=== PATIENT | male | born 1945 | race Caucasian/White ===

== ENCOUNTER 2018-07-09 09:25 | Day surgery (SDC) | payer OTHER ==
[2018-07-09] MEDS ORDERED: NALOXONE HCL 0.4 MG/ML INJ IVP PRN (09:50)
[2018-07-09] MEDS ORDERED: FLUMAZENIL 0.5 MG/5 ML MDV IVP PRN (09:50)
[2018-07-09] MEDS ORDERED: MIDAZOLAM 2 MG/2 ML VIAL IVP PRN (09:50)
[2018-07-09] MEDS ORDERED: fentaNYL 100 MCG/2 ML INJ IVP PRN (09:50)
[2018-07-09] MEDS ORDERED: NS 1,000 ML IV SCH (10:00)
[2018-07-09 10:54] LABS: PLATELET COUNT 226 10^3/uL (150-400)
[2018-07-09 11:02] LABS: INR 0.97 (0.83-1.16); PROTIME(PATIENT) 13.1 SEC (12.0-15.0)
[2018-07-09] MEDS ORDERED: FLUMAZENIL 0.5 MG/5 ML MDV IVP ONE (11:12)
[2018-07-09] MEDS ORDERED: NALOXONE HCL 0.4 MG/ML INJ ONE (11:12)
[2018-07-09] MEDS ORDERED: fentaNYL 100 MCG/2 ML INJ ONE ×2 (11:12)
[2018-07-09] MEDS ORDERED: MIDAZOLAM 2 MG/2 ML VIAL ONE (11:13)
[2018-07-09] MEDS ORDERED: LIDOCAINE 1% 300 MG/30 ML SDV ONE (11:26)
[2018-07-09] MEDS ORDERED: ACETAMINOPHEN 325 MG TAB PO PRN (12:07)
[2018-07-09] MEDS ORDERED: OXYCODONE/APAP 5/325 TAB PO PRN (12:07)
[2018-07-09] MEDS ORDERED: ONDANSETRON 4 MG/2 ML VIAL IVP PRN (12:07)
--- NOTE | 2018-07-09 12:08 | PDPROPOC ---
Sedation Plan of Care Sedation Plan of Care: vital signs stable, mental status noted, patient educated of risks, benefits, alternatives, patient can tolerate sedation ASA Classification: ASA 2 Planned drugs: fentanyl, midazolam Mallampati Score: Class 2 Mallampati Reference Image: Patient passed 3-3-2 rule?: Yes
--- NOTE | 2018-07-09 12:09 | PDRADPRE ---
Radiology History & Physical Indication for procedure: cancer (Left renal mass c/w RCC: CT guided biopsy) Home medications: Bp Med 08/23/15 [Last Taken Unknown] Bph Med 08/23/15 [Last Taken Unknown] Allergies/Adverse Reactions: No Known Allergies Allergy (Verified 08/23/15 15:05) Mental status: A&Ox3 Heart exam: regular rate and rhythm Lungs exam: clear to auscultation Mallampati Score: Class 2
--- NOTE | 2018-07-09 12:09 | PDRADPN ---
Radiology Procedure Note Date of Procedure: 07/09/18 Radiologist: Patrice Phillips Anesthesia: IV Sedation Pre-op Diagnosis: Left renal mass Post-op Diagnosis: Left renal mass Indication: Left renal mass Procedure: CT guided biopsy Finding(s): 18 ga core specimens sent to surg path Inf/Abcess present in the surg proc area at time of surgery?: No EBL: Minimal
[2018-07-09 18:23] VITALS: BP 122/87
== END 2018-07-09 18:00 | disposition home or self-care (01) ==
LOC: FIMAGING 09:25
PROVIDERS: ATTEND Specialist
PROC: 0TB13ZX Excision of Left Kidney, Percutaneous Approach, Diagnostic (ICD-10-PCS; principal; 2018-07-09 12:18)
DX: C64.2 Malignant neoplasm of left kidney, except renal pelvis (principal)
CPT/HCPCS: J2250; J2310; J3010

== ENCOUNTER 2018-09-13 09:29 | Day surgery (SDC) | payer OTHER ==
[2018-09-13] MEDS ORDERED: ROCURONIUM 100 MG/10 ML VIAL ONE (09:54)
[2018-09-13] MEDS ORDERED: SUCCINYLCHOLINE CHLORIDE 200 MG/10 ML VIAL ONE (09:54)
[2018-09-13] MEDS ORDERED: PROPOFOL/EMULSION 500 MG/50 ML BOTTLE IV ONE (09:59)
[2018-09-13] MEDS ORDERED: PROPOFOL 200 MG/20 ML VIAL ONE (09:59)
[2018-09-13] MEDS ORDERED: levOFLOXACIN 500 MG/DEXTROSE 100 ML IV ONE (10:30)
[2018-09-13 10:56] LABS: PLATELET COUNT 257 10^3/uL (150-400)
[2018-09-13 11:09] LABS: INR 1.05 (0.83-1.16); PROTIME(PATIENT) 13.3 SEC (12.0-15.0)
[2018-09-13] MEDS ORDERED: LIDOCAINE 1% 300 MG/30 ML SDV ONE (11:13)
--- NOTE | 2018-09-13 11:13 | PDANEPAE ---
ANE History of Present Illness left renal mass ANE Past Medical History - Cardiovascular History Hx Hypertension: Yes Hx Arrhythmias: No Hx Chest Pain: No Hx Coronary Artery / Peripheral Vascular Disease: Yes Hx CHF / Valvular Disease: No Hx Palpitations: No Cardiovascular History Comment: CAD s/p stents - Pulmonary History Hx COPD: No Hx Asthma/Reactive Airway Disease: No Hx Recent Upper Respiratory Infection: No Hx Oxygen in Use at Home: No Hx Sleep Apnea: No - Neurologic History Hx Cerebrovascular Accident: No Hx Seizures: No Hx Dementia: No - Endocrine History Hx Diabetes: No Hypothyroid: No Hyperthyroid: No Obesity: moderate - Renal History Hx Renal Disorders: Yes Renal History Comment: left renal cell cancer - Liver History Hx Hepatic Disorders: No - Neurological & Psychiatric Hx Hx Neurological and Psychiatric Disorders: No - Cancer History Hx Cancer: No - Congenital Disorder History Hx Congenital Disorders: No - GI History GERD: no Hx Gastrointestinal Disorders: No - Chronic Pain History Chronic Pain: No ANE Review of Systems Review of systems is: negative Review of Systems: - Exercise capacity Exercise capacity: >=4 METS METS (RN): 4 METS ANE Patient History - Allergies Allergies/Adverse Reactions: No Known Allergies Allergy (Verified 09/13/18 10:51) - Home Medications Home medications: home medication list seen and reviewed Home Medications: Bp Med 08/23/15 [Last Taken Unknown] Bph Med 08/23/15 [Last Taken Unknown] Aspirin 81mg (*) 81 mg PO DAILY 09/10/18 [Last Taken 09/09/18 08:00] Atorvastatin Calcium 40 mg PO DAILY 09/13/18 [Last Taken 09/13/18 0800] Carvedilol 3.12 mg PO BID 09/13/18 [Last Taken 09/13/18 0800] Entresto 24 mg/26 mg (RX) 24 mg PO BID 09/13/18 [Last Taken 09/13/18 0800] Tamsulosin HCl 0.4 mg PO DAILY 09/13/18 [Last Taken 09/13/18 08:00] - NPO status NPO Status: no food or drink >8 hours - Anes Hx Anes Hx: no prior problems - Smoking Hx Smoking Status: Never smoked ANE Labs/Vital Signs - Labs Result Diagrams: 09/13/18 10:32 09/13/18 10:32 - Vital Signs Vital Signs: reviewed preoperatively; see RN documention for details Height: 180.34 cm Weight: 102.058 kg ANE Physical Exam - Airway Neck exam: FROM Mallampati Score: Class 2 Mouth exam: dentures - Pulmonary Pulmonary: no respiratory distress - Cardiovascular Cardiovascular: regular rate and rhythym - ASA Status ASA Status: III ANE Anesthesia Plan Anesthesia Plan: general endotracheal anesthesia
[2018-09-13] MEDS ORDERED: fentaNYL 100 MCG/2 ML INJ ONE (11:29)
[2018-09-13] MEDS ORDERED: SODIUM CL 0.9% 20 ML VIAL ONE (12:00)
[2018-09-13] MEDS ORDERED: ONDANSETRON 4 MG/2 ML VIAL ONE (12:00)
[2018-09-13] MEDS ORDERED: GLYCOPYRROLATE 0.2 MG/1 ML VIAL ONE (12:00)
[2018-09-13] MEDS ORDERED: DEXAMETHASONE 10 MG/ML VIAL ONE (12:00)
[2018-09-13] MEDS ORDERED: PHENYLEPHRINE 10 MG/ML SDV ONE (12:00)
[2018-09-13] MEDS ORDERED: LIDOCAINE 2% JELLY 5 ML TUBE ONE (12:00)
--- NOTE | 2018-09-13 12:03 | PDRADPRE ---
Radiology History & Physical Indication for procedure: cancer (Left RCC, plan for MWA with CT guidance) Home medications: Bp Med 08/23/15 [Last Taken Unknown] Bph Med 08/23/15 [Last Taken Unknown] Aspirin 81mg (*) 81 mg PO DAILY 09/10/18 [Last Taken 09/09/18 08:00] Atorvastatin Calcium 40 mg PO DAILY 09/13/18 [Last Taken 09/13/18 0800] Carvedilol 3.12 mg PO BID 09/13/18 [Last Taken 09/13/18 0800] Entresto 24 mg/26 mg (RX) 24 mg PO BID 09/13/18 [Last Taken 09/13/18 0800] Tamsulosin HCl 0.4 mg PO DAILY 09/13/18 [Last Taken 09/13/18 08:00] Allergies/Adverse Reactions: No Known Allergies Allergy (Verified 09/13/18 10:51) Mental status: A&Ox3 Heart exam: regular rate and rhythm Lungs exam: clear to auscultation Mallampati Score: Class 3
[2018-09-13] MEDS ORDERED: IOPAMIDOL (ISOVUE-300) 100 ML BTL ONE (12:34)
[2018-09-13] MEDS ORDERED: OXYCODONE/APAP 5/325 TAB PO PRN (13:35)
[2018-09-13] MEDS ORDERED: ONDANSETRON 4 MG/2 ML VIAL IVP PRN (13:35)
[2018-09-13] MEDS ORDERED: ACETAMINOPHEN 325 MG TAB PO PRN (13:35)
--- NOTE | 2018-09-13 13:40 | PDRADPN ---
Radiology Procedure Note Date of Procedure: 09/13/18 Radiologist: Patrice Phillips Anesthesia: IV Sedation Pre-op Diagnosis: RCC Post-op Diagnosis: RCC Indication: RCC Procedure: MWA RCC Finding(s): Left RCC ablated without complication. Subcapsular hematoma from prior biopsy was seen which partially obsucred the renal mass. Inf/Abcess present in the surg proc area at time of surgery?: No
[2018-09-13] MEDS ORDERED: SUGAMMADEX SODIUM 200 MG/2 ML VIAL IVP ONE (13:45)
--- NOTE | 2018-09-13 14:02 | POSTANESTH ---
Post Anesthetic Evaluation Cardiovascular Status: Normal, Stable Respiratory Status: Normal, Stable Level of Consciousness/Mental Status: Can Participate in Eval Pain Control: Adequate, Prn Tx Ordered Nausea/Vomiting Control: Adequate, Prn Tx Ordered Complications Possibly Related to Anesthesia: None Noted
[2018-09-13 18:17] VITALS: BP 137/75
== END 2018-09-13 18:00 | disposition home or self-care (01) ==
LOC: FIMAGING 09:29
PROVIDERS: ATTEND Radiology Vascular & Interventional Radiology
PROC: 0T513ZZ Destruction of Left Kidney, Percutaneous Approach (ICD-10-PCS; principal; 2018-09-13 11:30)
DX: C64.2 Malignant neoplasm of left kidney, except renal pelvis (principal); C67.9 Malignant neoplasm of bladder, unspecified; N40.1 Benign prostatic hyperplasia with lower urinary tract symptoms; N13.8 Other obstructive and reflux uropathy; R39.11 Hesitancy of micturition
CPT/HCPCS: J0330; J1100; J1956; J2370; J2405; J2704; J3010; Q9967

== ENCOUNTER → 2018-10-22 | Outpatient (CLI) | payer OTHER ==
[~2018-10-22] MED LIST: IOPAMIDOL (ISOVUE-300) 100 ML BTL ONE
== END ==
LOC: CIMAGING 13:28
PROVIDERS: ATTEND Specialist
DX: Z08 Encounter for follow-up examination after completed treatment for malignant neoplasm (principal); C64.9 Malignant neoplasm of unspecified kidney, except renal pelvis
CPT/HCPCS: 74178; Q9967